=== PATIENT | male | born 1965 | race Caucasian/White ===

== ENCOUNTER 2016-12-03 17:52 | Emergency (ER) | payer OTHER ==
[~2016-12-03] VITALS: Ht 172.7 cm; Wt 120.0 kg
[~2016-12-03 17:52] MED LIST: AMBI10TA PO; ATOR40TA PO; DOCU1CAP39 PO; LORTA5 PO; METF500 PO; PRAS10 PO
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
[2016-12-03 18:51] VITALS: BP 145/70; PULSE 81; RESP 17; TEMP 98.6; O2SAT 97
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
[2016-12-03] MEDS ORDERED: SODIUM CHLORIDE 0.9% FLUSH 10 ML FLUSH IVF PRN (19:30)
[2016-12-03] MEDS ORDERED: LIDOCAINE HCL 1% 50 ML VIAL XX ONE (19:30)
[2016-12-03] MEDS ORDERED: cefTRIAXone 250 MG VIAL IM ONE (19:30)
[2016-12-03] MEDS ORDERED: AZITHROMYCIN PWD FOR SUSP 1 GM PACKET PO ONE (19:30)
[2016-12-03] MEDS ORDERED: LIDOCAINE HCL 1% PF 30 ML VIAL ONE (19:31)
[2016-12-03] MEDS ORDERED: HYDR1CRE TOPICAL (19:40)
[2016-12-03] MEDS ORDERED: DOXY100C PO (19:40)
[2016-12-03 20:11] LABS: BLOOD, URINE MOD (NEG); COMMENT (UR) CULT NOT INDICATED; CULTURE IF INDICATED CULT NOT INDICATED; GLUCOSE,URINE 1000 mg/dL (NEG); KETONE, URINE NEG (NEG); NITRITE,URINE NEG (NEG); PH, URINE 5.5 (5.0-8.5); URINE COLOR YELLOW (YELLW/STRAW)
[2016-12-03 22:17] LABS: CHLAMYDIA PCR NOT DETECTED (NOT DETECT); NEISSERIA PCR NOT DETECTED (NOT DETECT)
== END 2016-12-03 20:45 | disposition home or self-care (01) ==
LOC: NEPD 17:52
DX: N34.2 Other urethritis (principal); R21 Rash and other nonspecific skin eruption; F41.9 Anxiety disorder, unspecified; E78.00 Pure hypercholesterolemia, unspecified; R73.03 Prediabetes; R20.0 Anesthesia of skin; Z88.0 Allergy status to penicillin
CPT/HCPCS: 81001; 87491; 87591; 96372; 99284; J0696